=== PATIENT | male | born 2000 | race Two or more races ===

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

== ENCOUNTER 2024-10-14 01:04 | Emergency (ER) | payer MEDICAID ==
[~2024-10-14] VITALS: Ht 162.6 cm; Wt 61.4 kg
[2024-10-14] MEDS: ONDANSETRON HCL 4 MG/2 ML VIAL IM ONE (03:00)
[2024-10-14] MEDS ORDERED: ZOFR4T PO (03:01)
[2024-10-14] MEDS ORDERED: OSEL75CA5 PO (03:01)
[2024-10-14] MEDS ORDERED: PROM1SOL4 PO (03:01)
--- NOTE | 2024-10-14 03:01 | ED.PDOC ---
GI ASSESSMENT Chief Complaint: Nausea/Vomiting Time Seen by MD: 01:08 Reviewed Notes: Nurses Notes, Medications, Allergies Allergies: Coded Allergies: NO KNOWN ALLERGIES (Unverified , 02/23/18) Information Source: Patient Mode of Arrival: Ambulatory Past Medical History PAST MEDICAL HISTORY: Denies Surgical History: Denies all surgeries Family History Family History: Reviewed,noncontributory to illness, No family hx of Cancer, No family hx of DM, No family hx of Heart rodo, No family hx of HTN, No family hx ofKidney rodo, No family hx of Liver rodo, No family hx of Lung rodo, No family hx of Stroke Social History Smoker: Non-Smoker Alcohol: Denies ETOH Use Drugs: Denies Drug Use Lives In: Home GI differential Dx Differential Diagnosis: Gastroenteritis X-Ray, Labs, Meds, VS Vital Signs Date Time Temp Pulse Resp B/P (MAP) Pulse Ox O2 Delivery O2 Flow Rate FiO2 10/14/24 01:21 98.1 98 16 124/79 (94) 100 Time of 1ST Reevaluation: 02:59 Reevaluation 1ST: Improved Patient Education/Counseling: Diagnosis, Treatment, Prognosis, Need For Follow Up Family Education/Counseling: No Family Present Departure 1 Departure Time of Disposition: 02:59 Impression: Primary Impression: Influenza Disposition: 01 HOME / SELF CARE / HOMELESS Condition: Stable e-Prescriptions Ondansetron Odt 4MG Tab (ZOFRAN PO) 4 Mg Tb 4 MG PO TID PRN for 3 Days, #9 TAB ODT TAB-DISSOLVE IN MOUTH, THEN SWALLOW Prov: ROSIBEL VELAZQUEZ 10/14/24 Promethazine-Dm (Promethazine Dm 6.25-15 mg/5Ml) 1 Katherine Katherine 5 ML PO QID for 4 Days, #80 ML Prov: ROSIBEL VELAZQUEZ 10/14/24 Oseltamivir Phosphate (Tamiflu) 75 Mg Cap 1 CAP PO BID for 5 Days, #10 CAP Prov: ROSIBEL VELAZQUEZ 10/14/24 Discharged With: Self Critical Care Note Critical Care Time?: No Stability Stability form required: ROSIBEL Márquez Oct 14, 2024 03:01
[2024-10-14 03:15] VITALS: BP 116/54; PULSE 69; RESP 17; TEMP 98.4; O2SAT 95
[2024-10-14] MEDS: KETOROLAC TROMETH 60MG/2ML VIAL IM ONE (03:33)
== END 2024-10-14 03:46 | disposition home or self-care (01) ==
LOC: ER 01:04
DX: J11.1 Influenza due to unidentified influenza virus with other respiratory manifestations (principal)
CPT/HCPCS: 96372; 99283; J1885

== ENCOUNTER 2025-02-15 22:27 | Emergency (ER) | payer SELFPAY ==
[~2025-02-15 22:27] MED LIST: PROM1SOL4 PO
[2025-02-16] MEDS ORDERED: IBUP-1456 PO (00:47)
== END 2025-02-15 22:37 | disposition left against medical advice (07) ==
LOC: ER 22:27
DX: M79.642 Pain in left hand (principal); Z53.21 Procedure and treatment not carried out due to patient leaving prior to being seen by health care provider

== ENCOUNTER 2025-02-15 23:10 | Emergency (ER) | payer MEDICAID ==
[~2025-02-15] VITALS: Ht 172.7 cm; Wt 85.2 kg
[2025-02-16 00:27] VITALS: BP 166/68; PULSE 97; RESP 18; TEMP 98.8; O2SAT 100
--- NOTE | 2025-02-16 00:43 | DVH ---
CLINICAL INDICATION: left hand pain TECHNIQUE: XY L HAND 3V XRAY Comparison: None FINDINGS/IMPRESSION: : There is no evidence of acute fracture or dislocation. Soft tissues are unremarkable.
[2025-02-16] MEDS ORDERED: IBUP-1456 PO (00:47)
--- NOTE | 2025-02-16 00:47 | ED.PDOC ---
Musculoskeletal HPI Comments 24-year-old male presents to ER with complaints of left hand pain x2 days. Patient reports that he started experiencing pain/swelling/bruising to left hand two days ago s/p his left hand getting "crushed" between a Fridge and a wall while helping his friend move a Fridge. He rates his current pain a 7/10 to left hand without radiation. Denies use of medications for current symptoms. Denies numbness/tingling, left wrist pain or any further symptoms/complaints Chief Complaint: Upper Extremity Time Seen by MD: 23:12 Primary Care Provider: UNKNOWN Reviewed Notes: Nurses Notes, Medications, Allergies Allergies: Coded Allergies: NO KNOWN ALLERGIES (Unverified , 02/23/18) Home Meds Active Scripts Ibuprofen (Ibuprofen) 800 Mg Tab, 1 TAB PO TID PRN, #30 TAB 0 Refills Prov:KATHY CROCKETT 02/16/25 Promethazine-Dm (Promethazine Dm 6.25-15 mg/5Ml) 1 Katherine Katherine, 5 ML PO QID for 4 Days, #80 ML Prov:ROSIBEL VELAZQUEZ 10/14/24 Information Source: Patient Mode of Arrival: Ambulatory Past Medical History Past Medical History (Other): LEFT HAND FX "IN CHILDHOOD" Surgical History: Denies all surgeries Family History Family History: Unknown Social History Smoker: Non-Smoker Alcohol: Denies ETOH Use Drugs: Denies Drug Use Lives In: Home Constitutional: denies: chills, diaphoresis, fatigue, fever, malaise, sweats, weakness, others EENTM: denies: blurred vision, double vision, ear bleeding, ear discharge, ear drainage, ear pain, ear ringing, eye pain, eye redness, hearing loss, mouth pain, mouth swelling, nasal discharge, nose bleeding, nose congestion, nose pain, photophobia, tearing, throat pain, throat swelling, voice changes, others Respiratory: denies: cough, hemoptysis, orthopnea, SOB at rest, shortness of breath, SOB with excertion, stridor, wheezing, others Cardiovascular: denies: chest pain, dizzy spells, diaphoresis, Dyspnea on exertion, edema, irregular heart beat, left arm pain, lightheadedness, palpitations, PND, syncope, others Gastrointestinal: denies: abdomen distended, abdominal pain, blood streaked bowels, constipated, diarrhea, dysphagia, difficulty swallowing, hematemesis, melena, nausea, poor appetite, poor fluid intake, rectal bleeding, rectal pain, vomiting, others Genitourinary: denies: burning, dysuria, flank pain, frequency, hematuria, incontinence, penile discharge, penile sore, pain, testicle pain, testicle swelling, urgency, others Neurological: denies: dizziness, fainting, headache, left sided numbness, left sided weakness, numbness, paresthesia, pre-existing deficit, right sided numbness, right sided weakness, seizure, speech problems, tingling, tremors, weakness, others Musculoskeletal: reports: others ( STATED IN HPI) Integumetry: reports: others ( STATED IN HPI) Allergic/Immunocompromised: denies: Difficulty Healing, Frequent Infections, Hives, Itching, others Hematologic/Lymphatic: denies: anemia, blood clots, easy bleeding, easy bruising, swollen glands, others Endocrine: denies: excessive hunger, excessive sweating, excessive thirst, excessive urination, flushing, intolerance to cold, intolerance to heat, unexplained weight gain, unexplained weight loss, others Psychiatric: denies: anxiety, bipolar disorder, depression, hopeless, panic disorder, schizophrenia, sleepless, suicidal, others Physical Exam General Appearance: No Apparent Distress HEENT: PERRL/EOMI Neck: Full Range of Motion, Non-Tender, Normal Respiratory: Chest Non-Tender, Lungs Clear, No Accessory Muscle Use, No Respiratory Distress, Normal Breath Sounds Cardiovascular: No Murmur, No Gallop, Regular Rate/Rhythm Breast Exam: Deferred Gastrointestinal: NOT DONE Genitalia: Deferred Pelvic: Deferred Rectal: Deferred Extremities: Normal capillary refill, Normal range of motion Neurologic: Alert, No Motor Deficits, Normal Affect, Normal Mood, No Sensory De ficits Cerebellar Function: Normal Reflexes: Normal Skin: Dry, Warm, Other (SLIGHT TTP/SWELLING/ECCHYMOSIS NOTED TO PALMAR SURFACE OF LEFT HAND. NO BONY TENDERNESS APPRECIATED. NO TTP TO LEFT WRIST NOTED. NO FURTHER SKIN CHANGES NOTED. PATIENT ABLE TO FULLY MOVE ALL FINGERS OF LEFT HAND. PULSES INTACT) Peripheral Pulses: 2+ Radial (R), 2+ Radial (L), 2+ Brachial (R), 2+ Brachial (L) Lymphatic: No Adenopathy Was a procedure done? Was a procedure done?: No Sedation Sedation?: No Differential Diagnosis EXT Differential Diagnosis: Fracture, Dislocation, Neurovascular injury X-Ray, Labs, Meds, VS Vital Signs Date Time Temp Pulse Resp B/P (MAP) Pulse Ox O2 Delivery O2 Flow Rate FiO2 02/16/25 00:27 98.8 97 18 166/68 (100) 100 98.8 02/16/25 00:27 100 Room Air* 0 21 02/15/25 23:11 98.8 100 18 146/68 (94) 100 98.8 PATIENT: ARJUN WILLIS OACCT: [id number]: [id number] : 2000 LOC: ER ROOM / BED: / AGE / SEX: 24 / M ADM STATUS: REG ER SERVICE 950 ORDERING PHYSICIAN: KATHY CROCKETT PROCEDURE(s): LHAN - L HAND 3V XRAY REASON: left hand pain ORDER NUMBER(s): [id number], ACCESSION NUMBER(s): [id number] CLINICAL INDICATION: left hand pain TECHNIQUE: XY L HAND 3V XRAY Comparison: None FINDINGS/IMPRESSION: : There is no evidence of acute fracture or dislocation. Soft tissues are unremarkable. ATED BY: EMELYN OVIEDO MD DICTATED DATE/TIME: 02/16/2539 SIGNED BY: EMELYN OVIEDO MD SIGNED DATE/TIME: 02/16/2539 CC: LEFT HAND X-RAY REVIEWED PATIENT NEUROVASCULARLY INTACT ADVISED ON ELEVATION AND ALTERNATE ICE ON/OFF NEEDED FOR PAIN/SWELLING ADVISED TO FOLLOW UP WITH PCP IN 1-2 DAYS PATIENT VERBALIZED UNDERSTANDING AND AGREEABLE WITH CURRENT PLAN OF CARE ADVISED TO RETURN TO ER IMMEDIATELY IF SYMPTOMS WORSEN Images Reviewed?: Images reviewed and evaluated by me Time of 1ST Reevaluation: 00:20 Reevaluation 1ST: N/A Patient Education/Counseling: Diagnosis, Treatment, Prognosis, Need For Follow Up Family Education/Counseling: No Family Present Departure 1 Departure Time of Disposition: 00:42 Impression: Primary Impression: Contusion of hand, left Qualified Codes: S60.222A - Contusion of left hand, initial encounter Disposition: HOME / SELF CARE / HOMELESS Condition: Stable e-Prescriptions Ibuprofen (Ibuprofen) 800 Mg Tab 1 TAB PO TID PRN, #30 TAB 0 Refills Prov: KATHY CROCKETT 02/16/25 Discharged With: Self Critical Care Note Critical Care Time?: No Stability Stability form required: No Heart Score Heart Score: Heart Score Response (Comments) Value History N/A 0 EKG N/A 0 Age N/A 0 Risk Factors N/A 0 Troponin N/A 0 Total 0 KATHY CROCKETT February 16, 2025 00:47
== END 2025-02-16 00:52 | disposition home or self-care (01) ==
LOC: ER 23:10
DX: S60.222A Contusion of left hand, initial encounter (principal); Z79.899 Other long term (current) drug therapy; W23.1XXA Caught, crushed, jammed, or pinched between stationary objects, initial encounter; Y93.89 Activity, other specified; Y92.89 Other specified places as the place of occurrence of the external cause; Y99.8 Other external cause status
CPT/HCPCS: 73130